=== PATIENT | female | born 1990 | race Caucasian/White ===

== ENCOUNTER 2020-03-30 14:46 | Emergency (ER) | payer OTHER ==
[~2020-03-30 14:46] MED LIST: ASCORBIC ACID500 MG PO; BUSPAR5 MG PO; ONDANSETRON ODT4 MG SL; PULMICORT FLE180 MCG INH; TAMIFLU75 MG PO; TESSALON PERLE100 MG PO; ZINC50 M2 PO; ZOFRAN4 MG PO; ZOLOFT25 MG PO
[2020-03-30 17:54] LABS: BILIRUBIN NEGATIVE (NEGATIVE); BLOOD NEGATIVE Ery/uL (NEGATIVE); CLARITY CLOUDY (CLEAR); COLOR YELLOW (YELLOW); GLUCOSE (U) NORMAL (NORMAL); LEUKOCYTES 1+ Leu/uL (NEGATIVE); NITRITE POSITIVE (NEGATIVE); PROTEIN NEGATIVE (NEGATIVE); SPECIFIC GRAVITY 1.025 (1.001-1.030); UROBILINOGEN 0.2 mg/dL (0.2-1.0)
[2020-03-30 18:06] LABS: BACTERIA 4+; URINARY WBC 20-50
[2020-03-30] MEDS ORDERED: BACTRIM DS TAB1 EACH PO (18:14)
== END 2020-03-30 18:51 | disposition home or self-care (01) ==
LOC: FER 14:46
PROVIDERS: Nurse Practitioner Family
DX: S80.11XA Contusion of right lower leg, initial encounter (principal); N39.0 Urinary tract infection, site not specified; F17.210 Nicotine dependence, cigarettes, uncomplicated; V48.5XXA Car driver injured in noncollision transport accident in traffic accident, initial encounter; Y92.410 Unspecified street and highway as the place of occurrence of the external cause
CPT/HCPCS: 81001; 87076; 87088; 87186; 93971

== ENCOUNTER 2021-06-04 14:41 | Emergency (ER) | payer OTHER ==
[~2021-06-04 14:41] MED LIST changes: +BACTRIM DS TAB1 EACH PO
[2021-06-04 15:39] LABS: BASOPHIL 0.8 % (0-2); EOSINOPHIL 0.8 % (0-5); HCT 38.7 % (37.0-47.0); HGB 12.7 g/dl (12.5-16.0); LYMPHOCYTE 18.3 % (15-48); MCH 30.9 pg (25.0-31.0); MCHC 32.8 g/dL (32.0-36.0); MCV 94.2 fL (78.0-100.0); MONOCYTE 8.2 % (0-12); MPV 9.3 fL (6.0-9.5); NEUTROPHIL 70.6 % (41-80); NRBC 0; PLT 315 K/uL (150-400); RBC 4.11 M/uL (4.20-5.40); RDW 12.7 % (11.5-14.0); WBC 8.4 K/uL (4.0-10.5)
[2021-06-04 16:00] LABS: ALBUMIN 3.5 g/dL (3.4-5.0); ALKALINE PHOSHATASE 67 U/L (46-116); ALT 29 U/L (14-59); AST 22 U/L (15-37); BILIRUBIN - TOTAL 0.4 mg/dL (0.2-1.0); BUN 7 mg/dL (7-18); BUN/CREAT RATIO (CALC) 11.1 RATIO; CHLORIDE 104 mmol/L (98-107); CO2 (BICARBONATE) 26 mmol/L (21-32); CREATININE 0.63 mg/dL (0.51-0.95); GLOBULIN (CALCULATION) 3.3 g/dL; GLUCOSE 92 mg/dL (74-106); POTASSIUM 3.8 mmol/L (3.5-5.1); TOTAL PROTEIN 6.8 g/dL (6.4-8.2)
[2021-06-04] MEDS ORDERED: VENTOLIN HFA IN18 GM INH (18:56)
== END 2021-06-04 19:10 | disposition home or self-care (01) ==
LOC: FER 14:41
PROVIDERS: Emergency Medicine
DX: R07.89 Other chest pain (principal); F17.290 Nicotine dependence, other tobacco product, uncomplicated; Z20.822 Contact with and (suspected) exposure to COVID-19; Z88.0 Allergy status to penicillin; Z88.8 Allergy status to other drugs, medicaments and biological substances
CPT/HCPCS: 36415; 71045; 71250; 80053; 84484; 84703; 85025; 93005; U0002